=== PATIENT | female | born 1985 | race Caucasian/White ===

== ENCOUNTER 2018-04-18 09:39 | Day surgery (SDC) | payer OTHER, SELFPAY ==
[2018-04-18 10:29] VITALS: BP 109/69; PULSE 72; RESP 16; TEMP 36.4; O2SAT 99; BMI 31.1
[2018-04-18] MEDS: SODIUM CHLORIDE 0.9% 1,000 ML 42 ML IV (10:45)
--- NOTE | 2018-04-18 11:35 | PM.HP.1 ---
History of Present Illness Date Patient Seen: 04/18/18 Time Patient Seen: 11:36 Chief complaint: [id number] COLONOSCOPY W/POSS BX Narrative: Active ulcerative colitis. Need to check for extent of disease and activity Patient History Medical History Ulcerative colitis (Acute) Family & Social History Social History: household members spouse Meds Home Medications Medication Instructions Recorded Confirmed Type mesalamine [Lialda] 4.8 mg PO DAILY 04/18/18 04/18/18 History prednisone 20 mg PO DAILY 04/18/18 04/18/18 History vedolizumab [Entyvio] 300 mg IV Q4W 04/18/18 04/18/18 History Allergies Allergy/AdvReac Type Severity Reaction Status Date / Time No Known Drug Allergies Allergy Verified 04/18/18 10:51 Exam Vital Signs (past 8 hours): - 04/18/18 10:29 Temperature 97.5 F L Pulse Rate 72 Respiratory Rate 16 Blood Pressure 109/69 Pulse Oximetry 99 Oxygen Delivery Method Room Air Narrative Exam Narrative: Oropharynx free of lesions Chest clear to auscultation and percussion Cardiac exam reveals no S3 or murmur Assessment & Plan Plan: Assessment/Plan Narrative: Active ulcerative colitis currently on prednisone 20 mg daily was still active bleeding. Just began Entyvio with last dose 2 weeks ago. Need to assess disease activity.
--- NOTE | 2018-04-18 11:37 | PM.OP.ENDO ---
Operative Date/Time/Diagnoses Date of procedure: 04/18/18 Time of procedure: 11:37 Pre-op diagnosis: See indication and findings Post-op diagnosis: same Procedure & Clinicians Study performed: Colonoscopy Same procedure as scheduled: Yes Indications: Active ulcerative colitis need to assess disease activity Surgeon: Alba Andrea Procedure Notes Procedure in detail: After informed consent was obtained the patient was placed in the left lateral decubitus position. The video colonoscope was introduced the rectum slowly advanced to the cecum. On slow withdrawal mucosa was carefully examined. The scope was removed. The patient tolerated the procedure well. Blood loss none Complications none Sedation Total sedation time 16 min Versed 8 mg fentanyl 200 mcg IV titration Findings 1. Pancolitis from ulcerative colitis. This had the classic looked distally with cobblestoning and small ulcerations and severe friability. Area of pseudo polyps was seen from 20 cm to 40 cm. The left colon was by far the most involved. Once beyond the splenic flexure there were skip areas of sparing though not very large. 2. Normal terminal ileum Patient will stay on current dose of medications though could increase her prednisone back to 40 mg which was the dose of which he last was seeing no blood. She has a follow-up with Dr. Adams in 2 weeks to discuss.
[2018-04-18 12:00] VITALS: BP 113/83; PULSE 72; RESP 16; TEMP 36.6; O2SAT 99
[2018-04-18] MEDS: MIDAZOLAM 5 MG/5 ML VIAL IV (12:03)
[2018-04-18] MEDS: fentaNYL 250 MCG/5 ML INJ IV (12:05)
[2018-04-18 12:07] VITALS: BP 116/67; PULSE 95; RESP 12; TEMP 37.1; O2SAT 96
[2018-04-18 12:12] VITALS: BP 108/68; PULSE 75; RESP 14; TEMP 36.6; O2SAT 95
[2018-04-18 12:16] VITALS: BP 97/62; PULSE 90; RESP 17; TEMP 36.9; O2SAT 97
[2018-04-18 12:21] VITALS: BP 107/62; PULSE 89; RESP 18; TEMP 36.6; O2SAT 96
== END 2018-04-18 12:45 | disposition home or self-care (01) ==
PROVIDERS: PCP Nurse Practitioner Family; Visit Provider Internal Medicine Gastroenterology
PROC: 0DJD8ZZ Inspection of Lower Intestinal Tract, Via Natural or Artificial Opening Endoscopic (ICD-10-PCS; CPT 45378; principal; 2018-04-18 11:30)
DX: K51.90 Ulcerative colitis, unspecified, without complications (principal)
CPT/HCPCS: 45378; J2250; J3010

== ENCOUNTER → 2022-03-18 09:13 | Outpatient (CLI) | payer OTHER, SELFPAY ==
[2022-03-18 12:53] LABS: COVID19 -Nasal RAPID Negative (Negative)
== END ==
PROVIDERS: PCP Nurse Practitioner Family; Visit Provider Surgery
DX: Z20.822 Contact with and (suspected) exposure to COVID-19 (principal); Z01.812 Encounter for preprocedural laboratory examination
CPT/HCPCS: 87635; C9803

== ENCOUNTER 2022-03-21 09:44 | Day surgery (SDC) | payer OTHER, SELFPAY ==
--- NOTE | 2022-03-21 | PATH_ITS ---
[facility] Accession Number: [id number] . 01 Material submitted: . PART A: colon - ASCENDING COLON POLYP PART B: colon - TRANSVERSE COLON PART C: colon - DESCENDING COLON PART D: sigmoid colon - SIGMOID COLON PART E: rectum - RECTAL . 01 Diagnosis: A. Ascending Colon Polyp: Superficial portion of colorectal mucosa x1 with focal serrated changes, cannot completely exclude sessile serrated adenoma. Colorectal mucosa x1 with no significant histomorphologic abnormality. Additional levels through the block are noncontributory. . B. Transverse Colon: Mild crypt architectural distortion and no significant neutrophilic activity identified. Negative for dysplasia or malignancy. . C. Descending Colon: Mild crypt architectural distortion and no significant neutrophilic activity identified. Negative for dysplasia or malignancy. . D. Sigmoid Colon: Mild crypt architectural distortion and no significant neutrophilic activity identified. Negative for dysplasia or malignancy. . E. Rectal: Mild crypt architectural distortion and no significant neutrophilic activity identified. Negative for dysplasia or malignancy. MRV 03/24/2022 1601 Local . 01 Electronically signed: . Daysi Hughes MD, Pathologist NPI- [id number] . 01 Gross description: . Part A: ASCENDING COLON POLYP: Received in formalin are 2 fragment(s) of rodriguez, soft tissue measuring 0.1 x 0.1 x 0.1 cm to 0.3 x 0.2 x 0.2 cm submitted entirely in 1 cassette(s) Part B: TRANSVERSE COLON: Received in formalin are 2 fragment(s) of rodriguez, soft tissue measuring 0.1 x 0.1 x 0.1 cm to 0.5 x 0.1 x 0.1 cm submitted entirely in 1 cassette(s) Part C: DESCENDING COLON: Received in formalin are 3 fragment(s) of rodriguez, soft tissue measuring 0.1 x 0.1 x 0.1 cm to 0.3 x 0.2 x 0.2 cm submitted entirely in 1 cassette(s) Part D: SIGMOID COLON: Received in formalin is 1 fragment(s) of rodriguez, soft tissue measuring 0.3 x 0.3 x 0.2 cm submitted entirely in 1 cassette(s) Part E: RECTAL: Received in formalin are 2 fragment(s) of rodriguez, soft tissue measuring 0.1 x 0.1 x 0.1 cm to 0.2 x 0.2 x 0.2 cm submitted entirely in 1 cassette(s) /ARYA 03/22/2022 2230 Local . 01 Pathologist provided ICD-10: K51.00 . 01 CPT . 026586, 827459, 242528, 857745, 256784 Specimen Comment: A courtesy copy of this report has been sent to [phone] Performed at: 01 [facility] [address] [place] [address] [address], [place], [place] [id number] MD Jake Barnhart MD Phone: [phone]
[2022-03-21 10:08] VITALS: BP 127/82; PULSE 72; RESP 13; TEMP 36.2; O2SAT 100; BMI 33.9
--- NOTE | 2022-03-21 10:17 | PM.HP.1 ---
History of Present Illness History of Present Illness Date Patient Seen: 03/21/22 Time Patient Seen: 10:17 Chief complaint: DX COLONOSCOPY W/POSS BX Narrative: I reviewed the recent office note from July of 2021. Ulcerative colitis diagnosed 2009. Entyvio monotherapy. Clinical remission. Due for surveillance. Patient History Medical History Ulcerative colitis Family & Social History Social History: household members spouse Meds Home Medications and Allergies Home Medications Medication Instructions Recorded Confirmed Type mesalamine 1.2 gram tablet,delayed 4.8 mg PO DAILY 04/18/18 04/18/18 History release (Lialda) prednisone 20 mg tablet 20 mg PO DAILY 04/18/18 04/18/18 History vedolizumab 300 mg intravenous 300 mg IV Q4W 04/18/18 04/18/18 History solution (Entyvio) Allergies Allergy/AdvReac Type Severity Reaction Status Date / Time No Known Drug Allergies Allergy Verified 04/18/18 10:51 Review of Systems Review of Systems ROS: Yes All systems reviewed with the patient and are negative except as otherwise documented Exam Const General: cooperative HENMT Head: normal to inspection Eyes General: appearance normal, both eyes and all related structures Neck Neck: normal visual inspection Chest Chest: normal inspection of the chest Resp Effort & Inspection: normal respiratory effort Cardio Rate: regular rate GI Inspection: normal to inspection Skin General: no rashes or lesions noted Neuro General: patient alert and patient awake Extrem General: normal to inspection and no pedal edema Psych Appearance: grossly normal Assessment & Plan Assessment & Plan narrative: 37-year-old female with ulcerative colitis. Colonoscopy for surveillance is planned for today. Time Spent With Patient Critical Care time: I spent a total of [] minutes of critical care time on this patient's care today; this time is exclusive of procedural time.
--- NOTE | 2022-03-21 10:18 | PM.PREOP ---
Pre-operative Note COVID-19 COVID-19 status: Negative Result date/Date tested (Pos, Neg/Pending): 03/18/22 Criteria for continued procedure: Possibility delay results in more complex future surgery or treatment Interval Note History & Physical reviewed/Exam performed by Physician: Yes Changes to H&P: No ASA Class (for procedural sedation): II
[2022-03-21] MEDS: LACTATED RINGERS 1,000 ML 84 ML IV (10:22)
--- NOTE | 2022-03-21 11:18 | P.OP.COLON_ITS ---
Operative Date/Time/Diagnoses Date of procedure: 03/21/22 Time of procedure: 11:18 Pre-op diagnosis: Ulcerative colitis Post-op diagnosis: same Procedure & Clinicians Study performed: Colonoscopy with biopsies Same procedure as scheduled: Yes Indications: Ulcerative colitis Surgeon: Carlos Sorto Procedure Notes SCOAP/Timeout: Done Procedure in detail: After the risks and benefits were explained, written and verbal informed consent was obtained. The patient was brought into the procedure room and placed into the left lateral decubitus position. Please see nurse research quality assurance specialist notes for sedation details. Digital rectal examination was accomplished. The scope was introduced into the patient and advanced under direct visualization to the cecum as identified by the appendiceal orifice and ileocecal valve. The scope was slowly withdrawn to carefully examine the mucosa for any defects or lesions. Comprehensive imaging was accomplished throughout the rectum including the dentate line. The colon was decompressed, the scope was then removed from the patient who tolerated the procedure well. Adult colonoscope Bowel prep fair Scope withdrawal time: 15 minutes Sedation minutes: 20 Complications: none Impression: There was no evidence of any active colitis. No evidence of proctitis. There was a slightly diminished vascular pattern noted in the rectosigmoid region. There were some diminutive pseudo polyps starting about the rectosigmoid junction. These were a little more diminutive in the sigmoid colon. There was a segment in the descending colon of perhaps 15 cm or so where there were obvious noninflammatory small pseudo polyps. Otherwise the mucosa appeared unremarkable throughout. The terminal ileum was interrogated and appeared normal. Segmental biopsies were taken from the ascending, transverse, descending, sigmoid, and finally rectum. The descending colon contained a couple of specimens including the pseudo polyps. Endoscopic diagnosis 1. Left colon pseudopolyps 2. No evidence of active ulcerative colitis Post-procedure Plan for aftercare: 1. Await histopathology 2. Continue current therapy. 3. Repeat colonoscopy 2 years. Disposition: PACU
[2022-03-21 11:20] VITALS: BP 105/68; PULSE 67; RESP 18; TEMP 36.2; O2SAT 98
[2022-03-21 11:25] VITALS: BP 110/71; PULSE 59; RESP 15; O2SAT 99
[2022-03-21 11:30] VITALS: BP 119/79; PULSE 63; RESP 14; O2SAT 100
[2022-03-21 11:35] VITALS: BP 115/82; PULSE 61; RESP 15; O2SAT 100
[2022-03-21 11:37] VITALS: BP 125/75; PULSE 61; RESP 16; TEMP 36.3; O2SAT 98
== END 2022-03-21 11:56 | disposition home or self-care (01) ==
PROVIDERS: PCP Nurse Practitioner Family; Referring Provider Internal Medicine Gastroenterology; Visit Provider Internal Medicine Gastroenterology
PROC: 0DJD8ZZ Inspection of Lower Intestinal Tract, Via Natural or Artificial Opening Endoscopic (ICD-10-PCS; CPT 45378; principal; 2022-03-21 11:00)
DX: K51.00 Ulcerative (chronic) pancolitis without complications (principal); Z87.19 Personal history of other diseases of the digestive system; K63.5 Polyp of colon
CPT/HCPCS: 45380; J2704